=== PATIENT | female | born 1980 ===

== ENCOUNTER 2020-06-25 10:46 | Day surgery (SDC) | payer OTHER ==
[~2020-06-25 10:46] MED LIST: ACETAMINOPHEN 500 MG TAB PO SCH; GABAPENTIN 300 MG CAP PO NR; LACTATED RINGERS 1,000 ML IV SCH; MIDAZOLAM 2 MG/2 ML INJ IV NR; SCOPOLAMINE TRANSDERMAL PATCH 72 HR TD NR
--- NOTE | 2020-06-25 12:00 | Anesthesia Day of Surgery ---
Anesthesia Day of Surgery - Day of Surgery Patient Examined: Yes Patient H&P Reviewed: Yes Patient is NPO: Yes
--- NOTE | 2020-06-25 12:01 | Anesthesia Consultation ---
Anesthesia Consult and Med Hx - Airway Anesthetic Teeth Evaluation: Good ROM Head & Neck: Adequate Mental/Hyoid Distance: Adequate Mallampati Class: Class III Intubation Access Assessment: Possibly Difficult (large tongue) - Pulmonary Exam CTA: Yes - Cardiac Exam Cardiac Exam: RRR - Pre-Operative Health Status ASA Pre-Surgery Classification: ASA3 Proposed Anesthetic Plan: General - Pulmonary Hx Respiratory Symptoms: No SOB: Yes (Unable to climb 2FS) - Cardiovascular System Hx Hypertension: Yes (took nevibolol this morning) Hx Cardia Arrhythmia: Yes (Tachycardia. PVCs on ECG) - Central Nervous System Hx Seizures: Yes (Last seizure 2019; took keppra this morning) Hx Psychiatric Problems: Yes (anxiety) - Gastrointestinal Hx Gastroesophageal Reflux Disease: Yes (will give home dose omeprazole) - Endocrine Hx Renal Disease: No Hx Liver Disease: No Hx Insulin Dependent Diabetes: No Hx Non-Insulin Dependent Diabetes: No Hx Thyroid Disease: No - Other Systems Hx Alcohol Use: Yes (Occas)
[2020-06-25] MEDS ORDERED: HYDROmorphone 1 MG/1 ML INJ IV PRN (12:02)
[2020-06-25] MEDS ORDERED: PANTOPRAZOLE 40 MG TAB PO ONE (12:02)
[2020-06-25] MEDS ORDERED: ONDANSETRON 4 MG/2 ML INJ IV PRN (12:02)
[2020-06-25] MEDS ORDERED: BUPIVACAINE/PF (0.5%) 5 MG/1 ML 30 ML VIAL INFILTRATI ONE ×2 (12:37→14:21)
[2020-06-25] MEDS ORDERED: METHYLENE BLUE 50 MG/10 ML AMP ONE (12:49)
[2020-06-25] MEDS ORDERED: ROCURONIUM 50 MG/5 ML INJ IV ONE (13:02)
[2020-06-25] MEDS ORDERED: ONDANSETRON 4 MG/2 ML INJ ONE (13:02)
[2020-06-25] MEDS ORDERED: LIDOCAINE MPF (2%) 20 MG/1 ML VIAL 5 ML ONE (13:02)
[2020-06-25] MEDS ORDERED: dexAMETHasone 20 MG/5 ML VIAL ONE (13:02)
[2020-06-25] MEDS ORDERED: fentaNYL 100 MCG/2 ML INJ ONE (13:03)
[2020-06-25] MEDS ORDERED: propofoL 200 MG/20 ML VIAL IV ONE (13:03)
[2020-06-25] MEDS ORDERED: ceFAZolin/STERILE WATER 2 GM/20 ML SYRINGE IV NR (13:10)
--- NOTE | 2020-06-25 13:15 | Operative Report ---
Operative Report Operative Report: Preoperative diagnosis: Pelvic pain with history of endometriosis Postoperative diagnosis: Same Procedure: Dilation and curettage, chromopertubation of left fallopian tube, diagnostic laparoscopy Surgeon: Dr. Sharonda Pardo Anesthesia: GET Complication : None EBL: Less than 50 mL IV fluids 1 liter crystalloid Urine output: 300ml clear Findings absent right fallopian tube and ovary, normal left ovary, non-patent left fallopian tube, normal uterus, no endometriosis Procedure: Patient was consented in preop holding about risks benefits possible complications as well as alternatives to the procedure. After informed consent was obtained patient was taken to the operating room. She received excellent general endotracheal anesthesia and with no complication. She was then placed in the dorsal lithotomy position, prepped and draped in a sterile fashion. A timeout was verified, a Harris catheter was placed atraumatically. A speculum was placed in the vaginal vault, the parametria was noted to be pink with no masses lesions or nodularity. The cervix was identified, grasped with a single-tooth tenaculum, and the uterus sounded to 8cm. The cervix was then dilated to allow for a sharp curette and endometrial cavity was then cleared of all debris and tissue atraumatically, samplings sent to pathology. 20cc of Methylene Blue was then back filled through the HUMI catheter to check for patency of the left fallopian tube. Attention then turned to the abdomen. An infraumbilical incision was made with a scalpel, taken down to the fascia which was incised sharply atraumatically. The Conte trocar was then introduced into the abdomen atraumatically. Correct placement of the trocar was confirmed under direct visualization. The patient was placed in steep Trendelenburg. THe above findings were verified and pictures taken. There was no pelvic or abdominal pathology noted, At the completion of the procedure the Conte trochar was removed atraumatically under direct visualization. The fascia was closed with 0 Vicryl, the skin closed with Monocryl. Pressure dressings were applied at theincision site. The uterine manipulator, tenaculum and speculum were removed from the cervix and the vagina. The Harris catheter was removed. The patient was extubated and taken to the recovery area in stable condition. Her family was notified of her stable condition immediately following the completion of the procedure. There were no complications. EBL less than 50 mL. All sponge nee dle and instrument counts were correct x2. Olegaroi Pardo MD
[2020-06-25] MEDS ORDERED: HYDROmorphone 1 MG/1 ML INJ ONE (13:51)
[2020-06-25] MEDS ORDERED: NEOSTIGMINE 10MG/10 ML INJ MDV ONE (14:08)
[2020-06-25] MEDS ORDERED: GLYCOPYRROLATE 0.4 MG/2 ML INJ ONE (14:08)
[2020-06-25] MEDS ORDERED: SUGAMMADEX SODIUM 200 MG/2 ML VIAL IV ONE (14:16)
[2020-06-25] MEDS ORDERED: METHYLENE BLUE 50 MG/10 ML AMP IRRIGATION ONE (14:21)
[2020-06-25] MEDS ORDERED: LACTATED RINGERS 1,000 ML ONE (14:22)
[2020-06-25] MEDS ORDERED: KETOROLAC 30 MG/1 ML INJ ONE (14:42)
[2020-06-25] MEDS ORDERED: IBUPROFEN 600 MG TAB PO PRN (14:47)
[2020-06-25] MEDS ORDERED: ACETAMINOPHEN 325 MG TAB PO PRN (15:00)
[2020-06-25] MEDS ORDERED: KETOROLAC 30 MG/1 ML INJ IV ONE (15:00)
[2020-06-25] MEDS ORDERED: HYDROcodone/ACETAMINOPHEN 5-325 MG TAB PO PRN ×2 (15:00→15:08)
[2020-06-25 15:20] VITALS: BP 121/62
--- NOTE | 2020-06-25 17:15 | Post Anesthesia Evaluation ---
- Post Anesthesia Evaluation Patient Participated: Yes Airway Patent: Yes Stable Respiratory Function: Yes Nausea/Vomiting: No Temp > 96.8F: Yes Pain Manageable: Yes Adequeate Hydration: Yes Anesthesia Complications: No
== END 2020-06-25 10:47 | disposition home or self-care (01) ==
LOC: OR 10:46
PROVIDERS: ATTEND Obstetrics & Gynecology
DX: R10.2 Pelvic and perineal pain (principal); N80.8 Other endometriosis; E78.00 Pure hypercholesterolemia, unspecified; I10 Essential (primary) hypertension; K21.9 Gastro-esophageal reflux disease without esophagitis; F32.9 Major depressive disorder, single episode, unspecified; F41.9 Anxiety disorder, unspecified; Z72.89 Other problems related to lifestyle; Z79.899 Other long term (current) drug therapy; Z90.49 Acquired absence of other specified parts of digestive tract; Z90.721 Acquired absence of ovaries, unilateral; Z87.440 Personal history of urinary (tract) infections; Z98.890 Other specified postprocedural states
CPT/HCPCS: 49320; 58120; 58350; 88305; J1100; J1170; J1885; J2250; J2405; J2704; J2710; J3010; J7120; Q9968